=== PATIENT | female | born 1995 | race Caucasian/White ===

== ENCOUNTER 2017-11-18 21:53 | Emergency (ER) | payer BC ==
[2017-11-18] MEDS ORDERED: OXCA600T32 PO (22:13)
[2017-11-18] MEDS ORDERED: BUPR-472 PO (22:14)
[2017-11-18] MEDS ORDERED: ARI2 PO (22:14)
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
[2017-11-18 22:25] LABS: PLATELET COUNT, AUTOMATED 305 K/uL (150-450)
[2017-11-19 00:30] VITALS: BP 124/76
[2017-11-20] MEDS ORDERED: TRAZ-156 PO (08:55)
[2017-11-20] MEDS ORDERED: OMEG1CAP39 PO (08:56)
[2017-11-20] MEDS ORDERED: MULT-859 PO (08:56)
== END 2017-11-19 00:45 ==
LOC: ER 22:26
DX: R45.851 Suicidal ideations (principal)
CPT/HCPCS: 36415; 80305; 80320; 80329; 81001; 81025; 82040; 82247; 82310; 82374; 82435; 82565; 82947; 83735; 84075; 84132; 84155; 84295; 84443; 84450; 84460; 84520; 85025; 99285

== ENCOUNTER 2017-11-19 00:52 | Inpatient (IN) | payer BC ==
[~2017-11-19] VITALS: Ht 157.5 cm; Wt 59.0 kg
[~2017-11-19 00:52] MED LIST: ARI2 PO; BUPR-472 PO; OXCA600T32 PO
[2017-11-19 01:20] VITALS: BP 123/73
[2017-11-19] MEDS ORDERED: MAG HYD/AL HYD/SIMETH 30ML UDC PO PRN (02:40)
[2017-11-19] MEDS ORDERED: ACETAMINOPHEN 325 MG TAB PO PRN (02:40)
[2017-11-19] MEDS: MULTIVITAMINS TAB PO SCH (08:40)
[2017-11-19] MEDS ORDERED: traZODone HCL 50 MG TAB PO PRN (09:40)
[2017-11-19] MEDS: OMEGA-3 500 MG CAP PO SCH (09:58)
[2017-11-19] MEDS: OXcarbazepine 300 MG TAB PO SCH (09:59)
[2017-11-19] MEDS: CHOLECALCIFEROL 1000 UNIT TAB PO SCH (10:01)
[2017-11-19] MEDS: buPROPion XL 150 MG TABCR PO SCH (10:02)
[2017-11-19 10:15] VITALS: BP 108/72
[2017-11-19] MEDS ORDERED: INFLUENZA VIRUS VAC 0.5 ML SYR IM ONLY ONE (16:15)
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
[2017-11-19] MEDS ORDERED: traZODone HCL 50 MG TAB PO SCH (21:00)
[2017-11-20 06:20] VITALS: BP 116/69
[2017-11-20] MEDS: MULTIVITAMINS TAB PO SCH (08:07)
[2017-11-20] MEDS: OMEGA-3 500 MG CAP PO SCH (08:07)
[2017-11-20] MEDS: OXcarbazepine 300 MG TAB PO SCH (08:08)
[2017-11-20] MEDS: buPROPion XL 150 MG TABCR PO SCH (08:08)
[2017-11-20] MEDS: CHOLECALCIFEROL 1000 UNIT TAB PO SCH (08:08)
[2017-11-20] MEDS ORDERED: TRAZ-156 PO (08:55)
[2017-11-20] MEDS ORDERED: MULT-859 PO (08:56)
[2017-11-20] MEDS ORDERED: OMEG1CAP39 PO (08:56)
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
[2017-11-21] MEDS ORDERED: OXcarbazepine 300 MG TAB PO SCH (21:00)
== END 2017-11-20 09:30 | disposition home or self-care (01) | DRG 882 ==
LOC: BHS 00:52
PROVIDERS: ADMIT Psychiatry & Neurology Psychiatry; ATTEND Psychiatry & Neurology Psychiatry
DX: F43.12 Post-traumatic stress disorder, chronic (principal); R45.851 Suicidal ideations; F34.1 Dysthymic disorder; F98.8 Other specified behavioral and emotional disorders with onset usually occurring in childhood and adolescence; Y09 Assault by unspecified means; Z73.3 Stress, not elsewhere classified; Z55.9 Problems related to education and literacy, unspecified; Z91.5 Personal history of self-harm; Z81.1 Family history of alcohol abuse and dependence; Z81.8 Family history of other mental and behavioral disorders; Z23 Encounter for immunization
CPT/HCPCS: 81001; 82306; 84439; 84481; 87088; 90471; 90674